=== PATIENT | male | born 1960 | race Caucasian/White ===

== ENCOUNTER 2018-05-18 08:27 | Emergency (ER) | payer OTHER ==
[~2018-05-18] VITALS: Ht 172.7 cm; Wt 84.4 kg
[2018-05-18 08:38] VITALS: BP 152/94
--- NOTE | 2018-05-18 09:03 | PHYS DOC ---
Past Medical History Past Medical History: No Pertinent History Past Surgical History: No Surgical History Additional Information: 1/2PKDAY Alcohol Use: Occasionally Drug Use: None Adult General Chief Complaint Chief Complaint: DENTAL PROBLEM HPI HPI 58-year-old male presents to ER via POV with complaints of right-sided tongue irritation for the past few days which has gradually worsened over the past 24 hours. Patient states he ate a salad bar salad a few days ago and since has had rt side tongue irritation. He reports yest. he had a few beers and spicy food which since has caused increased rt side tongue irritation. He currently denies pain. He reports he is a daily smoker. He denies fever/chills, difficulty chewing or swallowing, throat pain/swelling, or difficulty talking. He denies biting his tongue or injury. He reports he drink iced tea and not much water daily. Review of Systems Review of Systems Constitutional: Denies fever or chills [] Eyes: Denies eye sxs HENT: Denies nasal congestion or sore throat/swelling. Denies difficulty swallowing/eating. Reports rt side tongue irritation/swelling Respiratory: Denies cough or shortness of breath [] Cardiovascular: No additional information not addressed in HPI [] GI: Denies nausea, vomiting Musculoskeletal: Denies neck pain Integument: Denies rash or skin lesions [] Neurologic: Denies headache, focal weakness or sensory changes [] All other systems were reviewed and found to be within normal limits, except as documented in this note. Allergies Allergies Allergies Coded Allergies Type Severity Reaction Last Updated Verified No Known Drug Allergies 05/18/18 No Physical Exam Physical Exam Constitutional: Well developed, well nourished, no acute distress, non-toxic appearance. Clear speech HENT: Normocephalic, atraumatic, oropharynx moist, no oral exudates- no pharyngeal/tonsillar swelling or erythema, no ulcers on tongue or palp. abscess. Uvula midline without exudate/erythema. Tongue is symmetric with no swelling- pt is able to move tongue side to side and up/down denying pain w/ movements. Lateral sides of tongue reddened without ulcers or palp. sores. Palate soft upper/lower without palp. abscess or visible ulcers. Nose normal. No pooling of secretions or difficulty swallowing Eyes: Pupils equal, conjunctiva normal, no discharge. [] Neck: Normal range of motion, no tenderness, supple, no stridor. Trachea midline. No gross adenopathy Cardiovascular: Heart rate regular rhythm, no murmur [] Lungs & Thorax: Resp. equal/nonlabored Skin: Warm, dry Neurologic: Alert and oriented X 3, normal motor function, normal sensory function, no focal deficits noted. [] Psychologic: Affect normal, judgement normal, mood normal. [] Current Patient Data Vital Signs Vital Signs Date Time Temp Pulse Resp B/P (MAP) Pulse Ox O2 Delivery O2 Flow Rate FiO2 05/18/18 08:38 97.9 83 16 152/94 (113) 97 Room Air 97.9 EKG EKG [] Radiology/Procedures Radiology/Procedures [] Course & Med Decision Making Course & Med Decision Making Pt was evaluated in the ER for complaints of right sided tongue irritation for the past few days. On exam patient did have bilateral redness on the lateral aspect of tone without palpable abscess or visible ulcers. Patient had full range of motion of his tongue denying any pain. Patient had no pooling of secretions or difficulty swallowing. Pt reports he had a few beers and spicy food yest. and is a daily smoker. Discussed increasing water intake as patient reported he drank minimal water daily. Also discussed avoiding alcohol, smoking , and spicy/60 foods. Encourage patient to rinse mouth several times daily with water. Discussed if symptoms persist or with concerns patient to follow-up with his primary care physician or ENT for reevaluation and further care. Education provided on signs and symptoms to return to ER. Discharge instructions were discussed. [] Dragon Disclaimer Dragon Disclaimer This electronic medical record was generated, in whole or in part, using a voice recognition dictation system. Departure Departure Impression: Primary Impression: Irritation of tongue Disposition: HOME, SELF-CARE Condition: STABLE Additional Instructions: You were evaluated for tongue irritation and on exam there were no abnormal findings for abscess or sores. As discussed you should drink plenty of water daily and swish her mouth after smoking, food intake, and brushing her teeth. Avoid smoking and alcohol intake as these can irritate your tongue further. Avoid spicy and acidic foods as much as possible to avoid further irritation. If you develop worsening symptoms you can follow-up with your primary doctor or a ENT (Ear, nose, and throat) doctor for re-evaluation and further care. YOLY NEGRETE APRN May 18, 2018 09:03
== END 2018-05-18 09:06 | disposition home or self-care (01) ==
LOC: ER 08:27
DX: K14.8 Other diseases of tongue (principal); F17.200 Nicotine dependence, unspecified, uncomplicated
CPT/HCPCS: 99281